=== PATIENT | male | born 1990 | race Caucasian/White ===

== ENCOUNTER 2019-11-04 02:58 | Emergency (ER) | payer OTHER ==
[~2019-11-04] VITALS: Ht 177.8 cm; Wt 83.9 kg
[2019-11-04 03:05] VITALS: BP 127/80; Ht 177.8 cm; Wt 83.9 kg
== END 2019-11-04 03:14 | disposition other institution (70) ==
LOC: ED 02:58
DX: Z02.89 Encounter for other administrative examinations (principal)